=== PATIENT | female | born 2005 | race Caucasian/White ===

== ENCOUNTER 2024-12-13 07:06 | Outpatient (RCR) | payer SELFPAY | END 2024-12-13 09:57 | disposition home health service (06) | LOC: RPT 07:06 | PROVIDERS: ATTENDING PHYSICIAN Family Medicine | DX: M79.12 Myalgia of auxiliary muscles, head and neck (principal); R29.3 Abnormal posture; M54.2 Cervicalgia; Z73.6 Limitation of activities due to disability | CPT/HCPCS: 97110; 97112; 97140; 97161 ==